=== PATIENT | male | born 1965 | race Asian ===

== ENCOUNTER 2018-05-19 13:52 | Outpatient (CLI) | payer BC | END 2018-05-19 23:34 | disposition home or self-care (01) | LOC: LAB 13:52 | DX: L08.9 Local infection of the skin and subcutaneous tissue, unspecified (principal) | CPT/HCPCS: 87070; 87077; 87185; 87186; 87205 ==

== ENCOUNTER 2020-07-03 14:40 | Outpatient (CLI) | payer BC | END 2020-07-03 22:34 | disposition home or self-care (01) | LOC: US 14:40 | DX: N64.4 Mastodynia (principal) ==

== ENCOUNTER 2020-07-13 10:53 | Outpatient (CLI) | payer BC | END 2020-07-13 23:14 | disposition home or self-care (01) | LOC: RAD 10:53 | DX: M79.602 Pain in left arm (principal) ==

== ENCOUNTER 2020-12-06 08:01 | Outpatient (CLI) | payer BC, OTHER | END 2020-12-06 21:54 | disposition home or self-care (01) | LOC: INF 08:01 | PROVIDERS: ATTEND Internal Medicine | DX: Z23 Encounter for immunization (principal) | CPT/HCPCS: 96372 ==

== ENCOUNTER 2020-12-28 08:12 | Outpatient (CLI) | payer BC, OTHER | END 2020-12-28 20:53 | disposition home or self-care (01) | LOC: INF 08:12 | PROVIDERS: ATTEND Internal Medicine | DX: Z23 Encounter for immunization (principal) | CPT/HCPCS: 96372 ==

== ENCOUNTER 2021-08-24 12:24 | Emergency (ER) | payer BC ==
[~2021-08-24] VITALS: Ht 172.7 cm; Wt 81.6 kg
[2021-08-24 12:47] VITALS: BP 133/86; TEMP 98.9
== END 2021-08-24 13:25 | disposition home or self-care (01) ==
LOC: ED 12:24
DX: S60.311A Abrasion of right thumb, initial encounter (principal); W45.8XXA Other foreign body or object entering through skin, initial encounter; Y92.89 Other specified places as the place of occurrence of the external cause
CPT/HCPCS: 99282

== ENCOUNTER 2022-04-09 11:48 | Outpatient (CLI) | payer BC ==
[2022-04-09 13:08] LABS: PLATELET COUNT 207 K/uL (142-355)
[2022-04-09 13:16] LABS: POTASSIUM 3.5 mmol/L (3.6-5.2)
== END 2022-04-09 19:11 | disposition home or self-care (01) ==
LOC: LABW 11:48
PROVIDERS: ATTEND Internal Medicine
DX: R19.7 Diarrhea, unspecified (principal)
CPT/HCPCS: 36415; 80053; 81002; 82272; 83630; 85027; 87015; 87045; 87324; 87328; 87329; 87449; 87507; 87899

== ENCOUNTER 2022-10-16 12:11 | Outpatient (CLI) | payer BC | END 2022-10-16 19:25 | disposition home or self-care (01) | LOC: LABW 12:11 | PROVIDERS: ATTEND Internal Medicine | DX: K52.89 Other specified noninfective gastroenteritis and colitis (principal) | CPT/HCPCS: 82272; 83630; 87015; 87045; 87206; 87324; 87328; 87329; 87449; 87507; 87899 ==